=== PATIENT | female | born 1955 | race Caucasian/White ===

== ENCOUNTER 2020-01-05 13:53 | Outpatient (CLI) | payer OTHER | END 2020-01-05 14:13 | disposition home or self-care (01) | LOC: MRI 13:53 | PROVIDERS: ATTEND Internal Medicine | DX: M17.11 Unilateral primary osteoarthritis, right knee (principal); S83.241A Other tear of medial meniscus, current injury, right knee, initial encounter; M25.561 Pain in right knee; M25.461 Effusion, right knee | CPT/HCPCS: 73721 ==

== ENCOUNTER 2020-04-17 07:15 | Inpatient (IN) | payer OTHER ==
[~2020-04-17] VITALS: Ht 152.4 cm; Wt 53.1 kg
[2020-04-17] MEDS ORDERED: AMLOD-VALSA-HC1 EAC1 PO (08:14)
[2020-04-17] MEDS ORDERED: METFORMIN HCL500 M3 PO (08:14)
[2020-04-24] MEDS ORDERED: SIMVASTATIN20 MG (10:28)
== END 2020-04-26 13:31 | DRG 470 ==
LOC: EDBD 04-24 07:15 → SURH 04-24 07:15 → SURG 04-24 08:45 → O/R 04-24 08:45 → SURG 04-24 15:25 → SURH 04-24 16:00 → SURG 04-26 13:31
PROVIDERS: ADMIT Orthopaedic Surgery; ATTEND Orthopaedic Surgery
PROC: 0SRD0J9 Replacement of Left Knee Joint with Synthetic Substitute, Cemented, Open Approach (ICD-10-PCS; principal; 2020-04-24 16:00)
DX: M17.12 Unilateral primary osteoarthritis, left knee (principal); D62 Acute posthemorrhagic anemia; I10 Essential (primary) hypertension; E11.9 Type 2 diabetes mellitus without complications

== ENCOUNTER 2022-09-24 12:47 | Inpatient (IN) | payer OTHER ==
[~2022-09-24] VITALS: Ht 152.4 cm; Wt 55.3 kg
[~2022-09-24 12:47] MED LIST: AMLOD-VALSA-HC1 EAC1 PO; METFORMIN HCL500 M3 PO; SIMVASTATIN20 MG
[2022-09-25] MEDS ORDERED: AZOR 10-20 MG1 EACH PO (10:47)
[2022-09-25] MEDS ORDERED: SYNTHROID50 MCG PO (10:47)
[2022-09-25] MEDS ORDERED: LIPITOR40 M1 PO (10:48)
[2022-09-25] MEDS ORDERED: CARDURA XL4 MG PO (10:48)
[2022-09-25] MEDS ORDERED: PROTONIX40 MG PO (10:48)
[2022-09-25] MEDS ORDERED: HORIZANT600 MG PO (10:49)
[2022-09-30] MEDS ORDERED: ALENDRONATE SOD70 MG (08:31)
[2022-09-30] MEDS ORDERED: ATORVASTATIN CA20 MG (08:31)
== END 2022-10-02 17:08 | DRG 470 ==
LOC: O/R 09-30 05:56 → SURG 09-30 05:56
PROVIDERS: ADMIT Orthopaedic Surgery; ATTEND Orthopaedic Surgery
PROC: 0SRC0JZ Replacement of Right Knee Joint with Synthetic Substitute, Open Approach (ICD-10-PCS; principal; 2022-09-30 13:45)
PROC: 30233N1 Transfusion of Nonautologous Red Blood Cells into Peripheral Vein, Percutaneous Approach (ICD-10-PCS; 2022-10-01)
DX: M17.11 Unilateral primary osteoarthritis, right knee (principal); D62 Acute posthemorrhagic anemia; M85.661 Other cyst of bone, right lower leg; I10 Essential (primary) hypertension; Z96.651 Presence of right artificial knee joint; Z20.822 Contact with and (suspected) exposure to COVID-19

== ENCOUNTER 2024-02-05 13:02 | Outpatient (CLI) | payer OTHER ==
[~2024-02-05 13:02] MED LIST changes: +ALENDRONATE SOD70 MG; +ATORVASTATIN CA20 MG; +AZOR 10-20 MG1 EACH PO; +CARDURA XL4 MG PO; +HORIZANT600 MG PO; +LIPITOR40 M1 PO; +PROTONIX40 MG PO; +SYNTHROID50 MCG PO
== END 2024-02-05 13:03 | disposition home or self-care (01) ==
LOC: NUCLEAR 13:02
PROVIDERS: ATTEND Orthopaedic Surgery
DX: M81.0 Age-related osteoporosis without current pathological fracture (principal)